=== PATIENT | female | born 1955 ===

== ENCOUNTER 2017-04-26 15:51 | Emergency (ER) | payer OTHER ==
[2017-04-26 16:07] VITALS: RESP 18; TEMP 98.1
[2017-04-26] MEDS ORDERED: Oxycodone/Acetaminophen 5/325 mg Tab PO STA (16:22)
[2017-04-26] MEDS ORDERED: Oxycodone/Acetaminophen 5/325 mg Tab ONE (16:35)
--- NOTE | 2017-04-26 17:25 | ED PDOC ---
HPI: Back Time Seen by Provider: 04/26/17 16:10 Chief Complaint (Nursing): Back Pain Chief Complaint (Provider): Back Pain History Per: Patient History/Exam Limitations: no limitations Onset/Duration Of Symptoms: Days Current Symptoms Are (Timing): Still Present Additional Complaint(s): 61 y/o female with a past medical history of hypertension, diabetes, and migraines who presents to the emergency department with a complaint of a frequent back pain x10 days that worsened since last night. 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 States [place]. Reports she takes Advil with minimal relief of pain. Denies radiation of the pain elsewhere, fever, or chills. Past Medical History Reviewed: Historical Data, Nursing Documentation, Vital Signs Vital Signs: Last Vital Signs Temp 98.1 F 04/26/17 16:01 Pulse 97 H 04/26/17 16:01 Resp 18 04/26/17 16:01 BP 161/86 H 04/26/17 16:01 Pulse Ox 97 04/26/17 16:01 - Medical History PMH: Diabetes, HTN, Migraine - Family History Family History: States: Unknown Family Hx - Home Medications Home Medications: Ambulatory Orders Medication Instructions Recorded Insulin Aspar/Insulin N 70/30 35 units SQ BID 04/26/17 [Novolog Mix 70/30-U/ml 3Ml] Losartan [Cozaar] 1 tab PO DAILY 04/26/17 Losartan/Hydrochlorothiazide 1 tab PO DAILY #14 tab 04/26/17 [Losartan Potassium-Hydrochlorothiazide 12.5 M] traMADol [Ultram] 25 mg PO Q6H PRN #10 tab 04/26/17 - Allergies Allergies/Adverse Reactions: Allergies Allergy/AdvReac Type Severity Reaction Status Date / Time No Known Allergies Allergy Verified 04/26/17 16:01 Review of Systems ROS Statement: Except As Marked, All Systems Reviewed And Found Negative Constitutional: Negative for: Fever, Chills Musculoskeletal: Positive for: Back Pain Physical Exam - Reviewed Nursing Documentation Reviewed: Yes Vital Signs Reviewed: Yes - Physical Exam Appears: Positive for: Non-toxic, No Acute Distress Head Exam: Positive for: ATRAUMATIC, NORMAL INSPECTION, NORMOCEPHALIC Skin: Positive for: Normal Color, Warm, Dry Neck: Positive for: Normal, Supple Cardiovascular/Chest: Positive for: Regular Rate, Rhythm. Negative for: Murmur Respiratory: Positive for: Normal Breath Sounds. Negative for: Accessory Muscle Use, Respiratory Distress Back: Positive for: Other (Vertical incision noted to the mid back region of the back with inferior tenderness about L1-L2. No erythema, crepitus, induration , or fluctuance noted. ). Negative for: Normal Inspection Neurologic/Psych: Positive for: Alert, Oriented (x3) - ECG O2 Sat by Pulse Oximetry: 97 (RA) Pulse Ox Interpretation: Normal Medical Decision Making Medical Decision Making: Time: 1620 Initial impression: Back pain Initial plan: --Lumbar Spine w/o contrast CT --Percocet 5/325 mg --Reevaluation Time: 17:27 --Lumbar CT FINDINGS: VERTEBRAE: Orthopedic hardware related to prior laminectomy and fusion including interpedicular screws T12 vertebral body. No evidence of hardware failure. DISCS/SPINAL CANAL/NEURAL FORAMINA: L1-2: Degenerative changes, disc space narrowing, vacuum disc phenomenon and small non marginal osteophytes identified at this level. Bulging annulus noted, mild. L2-3: Unremarkable. L3-4: Unremarkable. L4-5: Unremarkable. L5-S1: Unremarkable. PARASPINAL SOFT TISSUES: Unremarkable. OTHER FINDINGS: Metallic fragments identified left iliac bone. Tiny metallic fragments extend to the adjacent psoas muscle. IMPRESSION: No acute findings related to/accounting for the clinical presentation. Postoperative findings T12 vertebral body. No untoward abnormalities. Degenerative changes limited to L1-L2. Scribe Attestation: Documented by Yancy Pereira, acting as a scribe for Marlyn Crouch MD. Provider Scribe Attestation: All medical record entries made by the Scribe were at my direction and personally dictated by me. I have reviewed the chart and agree that the record accurately reflects my personal performance of the history, physical exam, medical decision making, and the department course for this patient. I have also personally directed, reviewed, and agree with the discharge instructions and disposition. Disposition - Clinical Impression Clinical Impression: Chronic back pain - Disposition Referrals: [facility] [Outside] Disposition Time: 17:38 Condition: STABLE Prescriptions: Losartan/Hydrochlorothiazide [Losartan Potassium-Hydrochlorothiazide 12.5 M] 1 tab PO DAILY #14 tab traMADol [Ultram] 25 mg PO Q6H PRN #10 tab PRN Reason: Pain, Severe (8-10) Instructions: Chronic Back Pain (ED) Forms: [employer] (Kinyarwanda) Print Language: PARAGUAYAN
--- NOTE | 2017-04-26 17:29 | CT ---
PROCEDURE: CT Lumbar Spine without contrast HISTORY: Upper lumbar pain, 3 years s/p tumor removal COMPARISON: None. TECHNIQUE: Axial computed tomography images were obtained of the lumbar spine without the use of intravenous contrast. Coronal and sagittal reformatted images were created and reviewed. Radiation dose: Total exam DLP = mGy-cm. This CT exam was performed using one or more of the following dose reduction techniques: Automated exposure control, adjustment of the mA and/or kV according to patient size, and/or use of iterative reconstruction technique. FINDINGS: VERTEBRAE: Orthopedic hardware related to prior laminectomy and fusion including interpedicular screws T12 vertebral body. No evidence of hardware failure. DISCS/SPINAL CANAL/NEURAL FORAMINA: L1-2: Degenerative changes, disc space narrowing, vacuum disc phenomenon and small non marginal osteophytes identified at this level. Bulging annulus noted, mild. L2-3: Unremarkable. L3-4: Unremarkable. L4-5: Unremarkable. L5-S1: Unremarkable. PARASPINAL SOFT TISSUES: Unremarkable. OTHER FINDINGS: Metallic fragments identified left iliac bone. Tiny metallic fragments extend to the adjacent psoas muscle. IMPRESSION: No acute findings related to/accounting for the clinical presentation. Postoperative findings T12 vertebral body. No untoward abnormalities. Degenerative changes limited to L1-L2.
[2017-04-26 18:18] VITALS: BP 129/72; PULSE 69
[2017-04-28 11:16] VITALS: O2SAT 97
== END 2017-04-26 18:25 | disposition home or self-care (01) ==
LOC: H.ER 15:51
DX: G89.29 Other chronic pain (principal); E11.9 Type 2 diabetes mellitus without complications; I10 Essential (primary) hypertension; Z79.4 Long term (current) use of insulin

== ENCOUNTER 2017-05-13 18:34 | Emergency (ER) | payer OTHER ==
[2017-05-13 18:54] VITALS: RESP 18; TEMP 98.6; O2SAT 99
[2017-05-13] MEDS ORDERED: Insulin Regular 100 units/ml SC STA (19:09)
[2017-05-13] MEDS ORDERED: Insulin Regular 100 units/ml ONE (19:42)
[2017-05-13 19:47] LABS: HEMATOCRIT 36.2 % (34.0-47.0); MEAN CELL VOLUME 79.7 fl (81.0-99.0); MEAN CORPUSCULAR HGB CONC 31.4 g/dL (33.0-37.0); RED CELL DISTRIBUTION WIDTH 13.9 % (11.5-14.5); WHITE BLOOD COUNT 7.9 K/uL (4.8-10.8)
[2017-05-13 19:54] LABS: RBC URINE 3 /hpf (0-3); URINE BILIRUBIN NEGATIVE (NEGATIVE); URINE BLOOD NEGATIVE (NEGATIVE); URINE COLOR YELLOW (YELLOW); URINE GLUCOSE (UA) >=500 mg/dL (Normal); URINE KETONE NEGATIVE (NEGATIVE); URINE LEUKOCYTE ESTERASE TRACE Leu/uL (Negative); URINE PROTEIN NEGATIVE (NEGATIVE); URINE UROBILINOGEN 0.2-1.0 mg/dL (0.2-1.0); WBC URINE 10 /hpf (0-5)
[2017-05-13 19:55] LABS: URINE BACTERIA MOD (<OCC)
[2017-05-13 19:58] LABS: BLOOD UREA NITROGEN 14 mg/dl (7-17); CALCIUM 9.1 mg/dL (8.4-10.2); CARBON DIOXIDE 25 mmol/L (22-30); CHLORIDE 102 mmol/L (98-107); GFR AFRICAN-AMERICAN > 60; GLUCOSE,RANDOM 299 mg/dL (65-105); POTASSIUM 4.9 MMOL/L (3.6-5.0); SODIUM 142 mmol/l (132-148)
--- NOTE | 2017-05-13 20:10 | ED PDOC ---
Hyperglycemia/Hypoglycemia Time Seen by Provider: 05/13/17 18:59 Chief Complaint (Nursing): High Blood Sugar Chief Complaint (Provider): High Blood Sugar History Per: Patient History/Exam Limitations: no limitations Onset/Duration Of Symptoms: Days (x2 weeks) Current Symptoms Are (Timing): Still Present : The patient does not have any of the infectious symptoms listed except for those marked. Additional Complaint(s): Champ Pandya is a 61 year old female with previous medical history of diabetes and hypertension, who presents to the emergency department for an evaluation of high blood sugar associated with dizziness, polyuria and polydipsia ongoing for 2 weeks since she ran out of diabetic medications. Denied chest pain, shortness of breath or headaches. [place] and has not established a PCP yet but has a pending appointment in 1 month. PMD: none provided Past Medical History Reviewed: Historical Data, Nursing Documentation, Vital Signs Vital Signs: Last Vital Signs Temp 98.6 F 05/13/17 18:51 Pulse 84 05/13/17 18:51 Resp 18 05/13/17 18:51 BP 166/79 H 05/13/17 18:51 Pulse Ox 99 05/13/17 18:51 - Medical History PMH: Diabetes, HTN, Migraine - Family History Family History: States: Unknown Family Hx - Social History Current smoker - smoking cessation education provided: No Ex-Smoker (has not smoked in the last 12 months): No Alcohol: None Drugs: Denies - Home Medications Home Medications: Ambulatory Orders Medication Instructions Recorded Insulin Aspar/Insulin N 70/30 35 units SQ BID 04/26/17 [Novolog Mix 70/30-U/ml 3Ml] Losartan [Cozaar] 1 tab PO DAILY 04/26/17 Losartan/Hydrochlorothiazide 1 tab PO DAILY #14 tab 04/26/17 [Losartan Potassium-Hydrochlorothiazide 12.5 M] traMADol [Ultram] 25 mg PO Q6H PRN #10 tab 04/26/17 Empagliflozin [Jardiance] 10 mg PO DAILY #30 tablet 05/13/17 Insulin Aspar/Insulin N 70/30 35 unit SC BID #5 cartridge 05/13/17 [Novolog Mix 70/30-U/ml 3Ml] - Allergies Allergies/Adverse Reactions: Allergies Allergy/AdvReac Type Severity Reaction Status Date / Time No Known Allergies Allergy Verified 04/26/17 16:01 Review of Systems ROS Statement: Except As Marked, All Systems Reviewed And Found Negative Cardiovascular: Negative for: Chest Pain Respiratory: Negative for: Shortness of Breath Gastrointestinal: Positive for: Other (frequent thirst) Genitourinary Female: Positive for: Frequency Neurological: Positive for: Dizziness. Negative for: Headache Physical Exam - Reviewed Nursing Documentation Reviewed: Yes Vital Signs Reviewed: Yes - Physical Exam Appears: Positive for: Well, Non-toxic, No Acute Distress Head Exam: Positive for: ATRAUMATIC, NORMAL INSPECTION, NORMOCEPHALIC Skin: Positive for: Normal Color Eye Exam: Positive for: Normal appearance, EOMI, PERRL. Negative for: Nystagmus ENT: Positive for: Normal ENT Inspection Neck: Positive for: Normal Cardiovascular/Chest: Positive for: Regular Rate, Rhythm. Negative for: Chest Non Tender Respiratory: Positive for: Normal Breath Sounds, Accessory Muscle Use. Negative for: Decreased Breath Sounds, Respiratory Distress Gastrointestinal/Abdominal: Positive for: Normal Exam, Bowel Sounds, Soft. Negative for: Tenderness Extremity: Positive for: Normal ROM. Negative for: Tenderness, Pedal Edema, Calf Tenderness, Deformity Neurologic/Psych: Positive for: Alert, Oriented - Laboratory Results Result Diagrams: 05/13/17 19:30 05/13/17 19:30 - ECG O2 Sat by Pulse Oximetry: 99 (RA) Pulse Ox Interpretation: Normal Medical Decision Making Medical Decision Making: Initial Impression: Hyperglycemia; Diabetes Initial Plan: * BMP * Urine dipstick * CBC * Urinalysis * HumuLIN R 15units SC 2130 Hyperglycemia resolving. Instructed to f/u with clinic [facility]. Will d/c home. Scribe Attestation: Documented by Hanny Garzon, acting as a scribe for Petar Jurado MD. Provider Scribe Attestation: All medical record entries made by the Scribe were at my direction and personally dictated by me. I have reviewed the chart and agree that the record accurately reflects my personal performance of the history, physical exam, medical decision making, and the department course for this patient. I have also personally directed, reviewed, and agree with the discharge instructions and disposition. Disposition - Clinical Impression Clinical Impression: Hyperglycemia - Disposition Referrals: [facility] [Outside] Disposition Time: 21:30 Condition: STABLE Prescriptions: Empagliflozin [Jardiance] 10 mg PO DAILY #30 tablet Insulin Aspar/Insulin N 70/30 [Novolog Mix 70/30-U/ml 3Ml] 35 unit SC BID #5 cartridge Instructions: Diabetic Hyperglycemia (ED), Medicine Refill (ED) Forms: [employer] [facility] (Belarusian) Print Language: CAPE VERDEAN
--- NOTE | 2017-05-13 20:21 | ED PDOC ---
Hyperglycemia/Hypoglycemia Time Seen by Provider: 05/13/17 18:59 Chief Complaint (Nursing): High Blood Sugar : The patient does not have any of the infectious symptoms listed except for those marked. Past Medical History Vital Signs: Last Vital Signs Temp 98.6 F 05/13/17 18:51 Pulse 84 05/13/17 18:51 Resp 18 05/13/17 18:51 BP 166/79 H 05/13/17 18:51 Pulse Ox 99 05/13/17 18:51 - Medical History PMH: Diabetes, HTN, Migraine - Family History Family History: States: Unknown Family Hx - Home Medications Home Medications: Ambulatory Orders Medication Instructions Recorded Insulin Aspar/Insulin N 70/30 35 units SQ BID 04/26/17 [Novolog Mix 70/30-U/ml 3Ml] Losartan [Cozaar] 1 tab PO DAILY 04/26/17 Losartan/Hydrochlorothiazide 1 tab PO DAILY #14 tab 04/26/17 [Losartan Potassium-Hydrochlorothiazide 12.5 M] traMADol [Ultram] 25 mg PO Q6H PRN #10 tab 04/26/17 - Allergies Allergies/Adverse Reactions: Allergies Allergy/AdvReac Type Severity Reaction Status Date / Time No Known Allergies Allergy Verified 04/26/17 16:01 - ECG O2 Sat by Pulse Oximetry: 99 Disposition - Disposition
[2017-05-13] MEDS ORDERED: Sodium Chloride 0.9% 1,000 ML IV SCH (20:45)
[2017-05-13 21:42] VITALS: BP 138/76; PULSE 78
== END 2017-05-13 21:59 | disposition home or self-care (01) ==
LOC: H.ER 18:34
DX: E11.65 Type 2 diabetes mellitus with hyperglycemia (principal); Z79.4 Long term (current) use of insulin; I10 Essential (primary) hypertension
CPT/HCPCS: 80048; 81003; 82948; 85027; 96360; 96372; 99282; J7040

== ENCOUNTER 2018-07-20 22:26 | Emergency (ER) | payer SELFPAY ==
[2018-07-20 22:34] VITALS: O2SAT 97
[2018-07-20] MEDS ORDERED: Sodium Chloride 0.9% 1,000 ML IV STA (23:32)
--- NOTE | 2018-07-20 23:35 | ED PDOC ---
HPI: Abdomen Time Seen by Provider: 07/20/18 23:08 Chief Complaint (Nursing): Abdominal Pain Chief Complaint (Provider): abdominal pain History Per: Patient, Family (daughter) History/Exam Limitations: no limitations Onset/Duration Of Symptoms: Days (1) Current Symptoms Are (Timing): Still Present Location Of Pain/Discomfort: Epigastric Associated Symptoms: Nausea, Vomiting Additional Complaint(s): 62 y/o female presents for evaluation of upper abdominal pain x 1 day with associated 6 episodes of vomiting. Denies fever, chest pain, shortness of breath, palptitations, changes in bowel movements, urinary symptoms. Past Medical History Reviewed: Historical Data, Nursing Documentation, Vital Signs Vital Signs: Last Vital Signs Temp 98.4 F 07/20/18 22:31 Pulse 101 H 07/20/18 22:31 Resp 20 07/20/18 22:31 BP 171/84 H 07/20/18 22:31 Pulse Ox 97 07/20/18 22:31 - Medical History PMH: Diabetes, HTN, Migraine - Surgical History Surgical History: Back Surgery, Cholecystectomy - Family History Family History: States: Unknown Family Hx - Living Arrangements Living Arrangements: With Family - Home Medications Home Medications: Ambulatory Orders Medication Instructions Recorded Insulin Aspar/Insulin N 70/30 35 units SQ BID 04/26/17 [Novolog Mix 70/30-U/ml 3Ml] Losartan [Cozaar] 1 tab PO DAILY 04/26/17 Losartan/Hydrochlorothiazide 1 tab PO DAILY #14 tab 04/26/17 [Losartan Potassium-Hydrochlorothiazide 12.5 M] traMADol [Ultram] 25 mg PO Q6H PRN #10 tab 04/26/17 Empagliflozin [Jardiance] 10 mg PO DAILY #30 tablet 05/13/17 Insulin Aspar/Insulin N 70/30 35 unit SC BID #5 cartridge 05/13/17 [Novolog Mix 70/30-U/ml 3Ml] Famotidine [Pepcid] 20 mg PO BID #20 tab 07/21/18 Ondansetron ODT [Zofran ODT] 4 mg PO Q8 PRN #10 odt 07/21/18 - Allergies Allergies/Adverse Reactions: Allergies Allergy/AdvReac Type Severity Reaction Status Date / Time No Known Allergies Allergy Verified 07/20/18 22:31 Review of Systems ROS Statement: Except As Marked, All Systems Reviewed And Found Negative Gastrointestinal: Positive for: Nausea, Vomiting, Abdominal Pain Physical Exam - Reviewed Nursing Documentation Reviewed: Yes Vital Signs Reviewed: Yes - Physical Exam Appears: Positive for: Well, Non-toxic, No Acute Distress Head Exam: Positive for: ATRAUMATIC, NORMAL INSPECTION, NORMOCEPHALIC Skin: Positive for: Normal Color Eye Exam: Positive for: Normal appearance ENT: Positive for: Normal ENT Inspection Cardiovascular/Chest: Positive for: Regular Rate, Rhythm Respiratory: Positive for: Normal Breath Sounds Gastrointestinal/Abdominal: Positive for: Bowel Sounds, Soft, Tenderness (mild epigastric discomfort) Back: Positive for: Normal Inspection Extremity: Positive for: Normal ROM Neurologic/Psych: Positive for: Alert, Oriented (x3) - Laboratory Results Result Diagrams: 07/20/18 23:57 07/20/18 23:57 - ECG O2 Sat by Pulse Oximetry: 97 - Progress ED Course And Treament: -cbc -cmp -lipase -urinalysis -IV NS bolus -IV pepcid -IV zofran On re-eval, patient states she is feeling better. Tolerating PO Patient with UTI on urinalysis; denies urinary symptoms currently. As per daughter, patient has had these frequently and was told it was due to her diabetes. Patient has an appointment on Thursday with her primary doctor to follow up for it and states she will let her doctor know then and hold off on antibiotics at this point. C&S sent Patient educated on findings, discharged with rx Pepcid, Zofran Advised bland diet Follow up PMD as scheduled Return precautions given Disposition - Clinical Impression Clinical Impression: Abdominal pain - Patient ED Disposition Is Patient to be Admitted: No Counseled Patient/Family Regarding: Studies Performed, Diagnosis, Need For Followup, Rx Given - Disposition Disposition: Routine/Home Disposition Time: 02:00 Condition: IMPROVED Prescriptions: Famotidine [Pepcid] 20 mg PO BID #20 tab Ondansetron ODT [Zofran ODT] 4 mg PO Q8 PRN #10 odt PRN Reason: Nausea/Vomiting Instructions: Gastritis Print Language: JAPANESE
[2018-07-21] LABS: BASO # 0.1 K/uL (0.0-0.2); BASO % 0.7 % (0.0-2.0); EOS # 0.1 K/uL (0.0-0.7); EOS % 1.2 % (0.0-4.0); HEMOGLOBIN 11.7 g/dL (12.0-16.0); LYMPH # 2.9 K/uL (1.0-4.3); LYMPH % 26.7 % (20.0-40.0); MEAN CELL VOLUME 79.3 fl (81.0-99.0); MEAN CORPUSCULAR HEMOGLOBIN 25.3 pg (27.0-31.0); MEAN CORPUSCULAR HGB CONC 31.9 g/dL (33.0-37.0); MEAN PLATELET VOLUME 7.6 fl (7.2-11.7); MONO # 0.7 K/uL (0.0-0.8); MONO % 6.4 % (0.0-10.0); NEUT # 6.9 K/uL (1.8-7.0); NRBC % 0.1 % (0.0-0.0); RBC 4.6 Mil/uL (3.80-5.20); RED CELL DISTRIBUTION WIDTH 14.5 % (11.5-14.5); WHITE BLOOD COUNT 10.7 K/uL (4.8-10.8)
[2018-07-21 00:08] LABS: ALB/GLOB RATIO 1.1 (1.0-2.1); ALBUMIN 4.3 g/dL (3.5-5.0); ALT/SGPT 38 U/L (9-52); AST/SGOT 32 U/L (14-36); BLOOD UREA NITROGEN 15 mg/dl (7-17); CALCIUM 9.4 mg/dL (8.4-10.2); GFR NON-AFRICAN AMERICAN > 60; LIPASE 170 U/L (23-300)
[2018-07-21 02:01] LABS: SQUAMOUS EPITHIAL 1 /hpf (0-5); URINE BACTERIA RARE (<OCC); URINE BILIRUBIN NEGATIVE (NEGATIVE); URINE BLOOD NEGATIVE (NEGATIVE); URINE CLARITY CLOUDY (Clear); URINE COLOR YELLOW (YELLOW); URINE GLUCOSE (UA) NEG (Normal); URINE LEUKOCYTE ESTERASE MOD Leu/uL (Negative); URINE PROTEIN 100 mg/dL (NEGATIVE); URINE UROBILINOGEN 0.2-1.0 mg/dL (0.2-1.0)
[2018-07-21 04:54] VITALS: BP 161/82; PULSE 86; RESP 18; TEMP 98
--- NOTE | 2018-07-21 06:44 | CARD ---
APPROVED REPORT Date of service: 07/20/2018 EKG Measurement Heart [id number] <Conclusion> Normal sinus rhythm Nonspecific T wave abnormality Prolonged QT Abnormal ECG
== END 2018-07-21 02:05 | disposition home or self-care (01) ==
LOC: H.ER 22:26
DX: R10.9 Unspecified abdominal pain (principal); E11.9 Type 2 diabetes mellitus without complications; I10 Essential (primary) hypertension; Z79.4 Long term (current) use of insulin; Z79.899 Other long term (current) drug therapy
CPT/HCPCS: 80053; 81003; 82948; 83690; 85025; 87086; 93005; 96374; 99284; J2405; J7030